=== PATIENT | female | born 1990 | race Caucasian/White ===

== ENCOUNTER → 2017-10-03 13:27 | Outpatient (CLI) | payer MEDICAID, SELFPAY ==
[2017-10-10 15:36] LABS: HPV APTIMA, High Risk Negative (Negative)
== END ==
PROVIDERS: Family Provider Nurse Practitioner Family; PCP Nurse Practitioner Family; Visit Provider Obstetrics & Gynecology
DX: Z12.4 Encounter for screening for malignant neoplasm of cervix (principal)
CPT/HCPCS: 88175; G0145

== ENCOUNTER → 2019-03-19 13:00 | Outpatient (CLI) | payer MEDICAID, SELFPAY ==
[2016-01-09 20:16] VITALS: BMI 18.9
[2019-03-25 10:29] LABS: HPV APTIMA, High Risk Negative (Negative)
== END ==
PROVIDERS: Visit Provider Obstetrics & Gynecology
DX: Z12.4 Encounter for screening for malignant neoplasm of cervix (principal)
CPT/HCPCS: 88175; G0145

== ENCOUNTER 2020-06-02 13:47 | Emergency (ER) | payer MEDICAID, SELFPAY ==
--- NOTE | 2020-06-02 12:55 | RAD_ITS ---
STUDY: X-RAY - LEFT KNEE REASON FOR EXAM: Left knee pain, left knee injury. TECHNIQUE: 4 view(s) of the knee. COMPARISON: Radiographs 02/03/2016. FINDINGS: Normal visualized distal femur. Normal visualized proximal tibia and fibula. Normal proximal tibiofibular articulation. Normal medial femorotibial compartment. Normal lateral femorotibial compartment. Normal patellofemoral articulation. There is patella judith. RAD/Knee 4 or More Views IMPRESSION: Patellar judith. Otherwise, unremarkable x-ray examination of the left knee. Electronically Signed: Josue Santo MD at 14:17 EDT Tel , Service support ,
[2020-06-02 13:47] VITALS: BP 138/94; PULSE 110; RESP 16; TEMP 36.6; O2SAT 99; BMI 26.4
--- NOTE | 2020-06-02 14:12 | CT_ITS ---
STUDY: CT FACIAL BONES WITHOUT CONTRAST REASON FOR EXAM: Female, 29 years old. FELL FACE 1ST ON MONDAY. SWELLING TO RIGHT EYE. RADIATION DOSAGE (If Supplied By Facility): CTDIvol = ( 33.45 ) mGy, DLP = ( 637.51 ) mGycm TECHNIQUE: The patient was scanned in a multi detector CT scanner. Sagittal and coronal images were reconstructed. Individualized dose optimization techniques were used for this CT. COMPARISON: None. FINDINGS: Normal soft tissue structures. Normal orbital nash and orbital contents. Normal nasal bones and anterior nasal spine. Normal facial bones. There is no demonstrated fracture. Normal visualized paranasal sinuses. CT/Sinus/Facial Bone IMPRESSION: Normal unenhanced CT of the facial bones. Electronically Signed: Hema Lucas, at 15:02 EDT , Service support ,
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
--- NOTE | 2020-06-02 14:20 | CT_ITS ---
STUDY: CT BRAIN WITHOUT CONTRAST REASON FOR EXAM: Female, 29 years old. FELL FACE 1ST ON MONDAY. SWELLING TO RIGHT EYE. RADIATION DOSAGE (If Supplied By Facility): CTDIvol = ( 60.81 ) mGy, DLP = ( 998.67 ) mGycm TECHNIQUE: Transaxial CT imaging of the brain was performed without administration of intravenous contrast material. Individualized dose optimization techniques were used for this CT. COMPARISON: No relevant priors. FINDINGS: Normal soft tissue structures. Normal calvarium. Normal size ventricles and extra-axial spaces for the patient''s age. Normal white matter tracts of the cerebral hemispheres. Normal basal ganglia and thalami. Normal brainstem. Normal cerebellum. There is no intracranial hemorrhage. There are no findings of an acute ischemic infarction. Normal visualized paranasal sinuses. CT/Brain/Head without Contrast IMPRESSION: Normal unenhanced CT scan of the brain. Electronically Signed: Hema Lucas, at 14:54 EDT , Service support ,
== END 2020-06-02 15:38 | disposition home or self-care (01) ==
PROVIDERS: Emergency Provider Emergency Medicine; PCP Internal Medicine
DX: S00.11XA Contusion of right eyelid and periocular area, 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 (principal); S83.92XA Sprain of unspecified site of left knee, 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; W17.89XA Other fall from one level to another, 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; Y93.01 Activity, walking, marching and hiking; Y92.009 Unspecified place in unspecified non-institutional (private) residence as the place of occurrence of the external cause; Y99.9 Unspecified external cause status
CPT/HCPCS: 70450; 70486; 73564; 99281

== ENCOUNTER → 2020-06-09 | Outpatient (CLI) | payer MEDICAID, SELFPAY ==
[2020-06-02 13:47] VITALS: BMI 26.4
[2020-06-11 20:08] LABS: Chlamydia By Nucleic Acid AMP Negative (Negative)
[2020-06-11 21:39] LABS: Gonococcus By Nucleic Acid AMP Negative (Negative)
[2020-06-19 06:24] LABS: HPV Reflexed? NOT INDICATED
== END | disposition home or self-care (01) ==
LOC: LABSPEC 06-10 09:40
PROVIDERS: PCP Internal Medicine; Visit Provider Obstetrics & Gynecology
DX: N91.2 Amenorrhea, unspecified (principal); Z11.3 Encounter for screening for infections with a predominantly sexual mode of transmission
CPT/HCPCS: 87491; 87591; 88175; G0145

== ENCOUNTER → 2020-12-08 14:20 | Outpatient (CLI) | payer MEDICAID, SELFPAY ==
--- NOTE | 2020-12-08 14:25 | US_ITS ---
STUDY: ULTRASOUND BREAST - RIGHT REASON FOR EXAM: Female, 30 years old. Palpable lump in the right breast. TECHNIQUE: Axial and longitudinal images of the RIGHT breast were performed with a high resolution ultrasound transducer. # OF IMAGES: 12 COMPARISON: Comparison is made with prior mammogram done earlier in the day. FINDINGS: RIGHT Breast: The palpable mildly corresponds to a 2.7 cm x 2.9 cm x 1.9 cm well-defined hypoechoic solid nodule at the 1 o''clock position of the breast at 3 cm from nipple. This most likely represents a fibroadenoma. A similar appearing hypoechoic solid nodule measuring 5 mm x 6 mm x 4 mm is seen adjacent to the dominant nodule. US/Breast Limited Unilateral IMPRESSION: The palpable abnormality corresponds to a 2.7 cm x 2.9 cm x 1.9 cm well-defined hypoechoic solid nodule at the 1 o''clock position of the breast at 3 cm from nipple. This most likely represents a small fibroadenoma. A biopsy is recommended. ASSESSMENT CATEGORY: BIRADS Category 4: Suspicious - Biopsy Should Be Considered. A letter regarding these results will be sent to the patient by the facility within 30 days. Electronically Signed: Hema Lucas MD at 8:25 EDT , Service support ,
--- NOTE | 2020-12-08 14:25 | BI_ITS ---
MAMMOGRAPHY - BILATERAL DIAGNOSTIC REASON FOR EXAM: Female, 30 years old. Right breast lump. PERTINENT HISTORY: Grandmother with breast cancer. TECHNIQUE: Digital bilateral breast jayy (3D mammographic acquisition) in the CC and MLO projections. 2-D mediolateral oblique (MLO) and craniocaudad (CC) views of both breasts were obtained. CAD: Full Field Digital Mammography with Computer Added Detection was performed. COMPARISON: None. Baseline examination. FINDINGS: Breast Composition: The breasts are extremely dense, which lowers the sensitivity of mammography. There is a 2.2 cm x 2.4 cm well-defined nodule in the upper deep medial aspect of the right breast. This corresponds to the palpable abnormality. No other significant abnormalities are identified. BI/DIAG MAMM W/CAD, BILAT IMPRESSION: 2.2 cm x 2.4 cm well-defined nodule in the upper deep medial aspect of the right breast. Correlation with ultrasound is recommended. ASSESSMENT CATEGORY: BIRADS Category 0: Incomplete. Need additional imaging evaluation. A letter regarding these results will be sent to the patient by the facility within 30 days. Approximately 10% of breast cancers are not detected by mammography. A normal mammogram should not delay biopsy of a clinically suspicious abnormality. Electronically Signed: Hema Lucas MD at 15:24 EDT , Service support ,
== END ==
PROVIDERS: PCP Internal Medicine; Referring Provider Obstetrics & Gynecology; Visit Provider Obstetrics & Gynecology
DX: N63.12 Unspecified lump in the right breast, upper inner quadrant (principal); Z80.3 Family history of malignant neoplasm of breast
CPT/HCPCS: 76642; 77062; 77066; G0279

== ENCOUNTER → 2020-12-11 | Outpatient (CLI) | payer MEDICAID, SELFPAY ==
[2020-12-11 09:19] VITALS: BMI 24.1
--- NOTE | 2020-12-11 09:20 | BRBX_PTH ---
PATIENT: PELON HERNANDEZ LOC: [facility] U#:[id number] AGE/SX: 30/F ROOM: RE12/11/[address]: Dr. Ld Padilla MD : 1990 BED: DIS: 12/11/2020 SPEC #: [id number] RECD: 12/11/20 10:28 STATUS: NORM REQ #: [id number] SAMMY: 12/11/20 09:[address]: Ld Padilla DEPT: SURGICAL PATHOLOGY RECD BY: Ml Al ENTERED: 12/11/20 12:52 SP TYPE: BREAST BX OTHR DR: Dr. Torsten Cat MD Tissues: Breast, NOS Procedures: Surgery Specimen Level IV HEADER OPERATION: Right breast biopsy PRE-OP DIAGNOSIS: Right breast mass TISSUE SUBMITTED: Right breast mass MICROSCOPIC DIAGNOSIS Right breast mass, core biopsy: Fibroadenoma. Negative for atypia or malignancy. See comment. SJ:celina 12/14/2020 COMMENT Correlation with clinical, radiologic findings and appropriate follow up are necessary. MICROSCOPIC DESCRIPTION Slides are reviewed. GROSS DESCRIPTION Received in fixative is one container labeled with the patient's name and designated right breast. The specimen consists of multiple elongated fragments of hyman tissue that in aggregate measure 2 x 1.5 x 0.1 cm. The specimen is totally submitted in one cassette. / AM:celina 12/11/20 TC:1 CPT: 16757
== END | disposition home or self-care (01) ==
LOC: LABSPEC 11:16
PROVIDERS: PCP Internal Medicine; Visit Provider Surgery
DX: N63.10 Unspecified lump in the right breast, unspecified quadrant (principal)
CPT/HCPCS: 88305

== ENCOUNTER 2021-09-03 09:38 | Outpatient (CLI) | payer MEDICAID, SELFPAY ==
--- NOTE | 2021-09-03 09:38 | US_ITS ---
STUDY: ULTRASOUND BREAST - RIGHT REASON FOR EXAM: Female, 30 years old. Palpable lump in the right breast. TECHNIQUE: Axial and longitudinal images of the RIGHT breast were performed with a high resolution ultrasound transducer. # OF IMAGES: 28 COMPARISON: Comparison is made with prior mammogram done earlier in the day. Prior sonogram dated 12/08/2020.. FINDINGS: RIGHT Breast: Stable 2.8 cm x 2.6 x 2.2 cm solid hypoechoic nodule at the 1 o''clock position of the breast at 3 cm from nipple. A tissue clip marker is seen within it in keeping with prior biopsy. Stable 8 mm x 9 mm x 8 mm hypoechoic nodule is seen adjacent at the 1 o''clock position of the breast at 3 cm from nipple. US/Breast Limited Unilateral IMPRESSION: Stable examination. ASSESSMENT CATEGORY: BIRADS Category 2: Benign. A letter regarding these results will be sent to the patient by the facility within 30 days. Electronically Signed: Hema Lucas MD at 12:34 EST , Service support ,
--- NOTE | 2021-09-03 09:38 | BI_ITS ---
MAMMOGRAPHY - BILATERAL DIAGNOSTIC REASON FOR EXAM: Female, 30 years old. Palpable lump in the inferior aspect of the right breast. PERTINENT HISTORY: Grandmother with breast cancer. Aunt with breast cancer. TECHNIQUE: Digital bilateral breast jayy (3D mammographic acquisition) in the CC and MLO projections. 2-D mediolateral oblique (MLO) and craniocaudad (CC) views of both breasts were obtained. CAD: Full Field Digital Mammography with Computer Added Detection was performed. COMPARISON: Comparison is made with prior study dated 12/08/2020. FINDINGS: Breast Composition: The breasts are extremely dense, which lowers the sensitivity of mammography. There is a 2.2 cm x 2.4 sign well-defined nodule in the upper deep medial aspect of the right breast. A tissue clip marker is seen within it. No other significant abnormalities are identified. There has been no significant change since the prior study. BI/DIAG MAMM W/CAD, BILAT IMPRESSION: Stable bilateral diagnostic mammogram. With the patient''s history of a new palpable lump in the inferior medial aspect of the right breast, correlation with ultrasound is recommended. ASSESSMENT CATEGORY: BIRADS Category 0: Incomplete. Need additional imaging evaluation. A letter regarding these results will be sent to the patient by the facility within 30 days. Approximately 10% of breast cancers are not detected by mammography. A normal mammogram should not delay biopsy of a clinically suspicious abnormality. Electronically Signed: Hema Lucas MD at 14:05 EST , Service support ,
== END 2021-09-03 23:59 | disposition short-term general hospital (02) ==
LOC: OPBI 09:38
PROVIDERS: PCP Internal Medicine; Referring Provider Obstetrics & Gynecology; Visit Provider Obstetrics & Gynecology
DX: N63.10 Unspecified lump in the right breast, unspecified quadrant (principal)
CPT/HCPCS: 77062; 76642; 77066; G0279

== ENCOUNTER → 2023-01-25 | Outpatient (CLI) | payer MEDICAID, SELFPAY ==
[2023-01-25 14:48] LABS: hCG Titer Quant., Serum 2909 mIU/mL (1-3)
== END | disposition home or self-care (01) ==
LOC: WOBLAB 11:50
PROVIDERS: PCP Internal Medicine; Visit Provider Nurse Practitioner Women's Health
DX: O04.80 (Induced) termination of pregnancy with unspecified complications (principal)
CPT/HCPCS: 36415; 84702

== ENCOUNTER → 2023-04-03 | Outpatient (CLI) | payer MEDICAID, SELFPAY ==
[2023-04-06 16:10] LABS: HPV APTIMA, High Risk Negative (Negative)
== END | disposition home or self-care (01) ==
LOC: LABSPEC 09:19
PROVIDERS: PCP Internal Medicine; Visit Provider Nurse Practitioner Women's Health
DX: Z01.419 Encounter for gynecological examination (general) (routine) without abnormal findings (principal)
CPT/HCPCS: 87624; 88175; G0145

== ENCOUNTER 2023-11-03 14:45 | Inpatient (IN) | payer MEDICAID, SELFPAY ==
[2023-11-03] VITALS (8 sets, daily range): BP systolic 131–157; BP diastolic 98–109; PULSE 102–155; RESP 12–20; TEMP 36.6–37; O2SAT 96–100; BMI 28.0; BMI 26.8
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
[2023-11-03] MEDS: Lorazepam 2 MG/ML WCH Syringe IV (15:37)
[2023-11-03 15:39] LABS: Absolute Lymphocyte Count 2.67 X10^3/uL (0.83-4.51); Absolute Neutrophil Count 7.6 X10^3/uL (2.0-7.7); Basophil# 0.05 X10^3/uL; Basophil% 0.5 % (0-1); Eosinophil# 0.08 X10^3/uL; Eosinophils% 0.7 % (0-5); Hematocrit 40.7 % (37-47); Hemoglobin 14.1 g/dL (12.0-15.0); Lymphocyte # 2.67 X10^3/ul (0.83-4.51); Lymphocyte % 24.1 % (19-41); Mean Corp Hgb Conc 34.6 g/dL (32-36); Mean Corpuscular Hgb 32.3 pg (27.0-32.0); Mean Corpuscular Volume 93.1 fL (81-99); Mean Platelet Vol. 9.3 fl (6.2-12.0); Monocyte# 0.62 X10^3/uL; Monocyte% 5.6 % (0-10); NRBC Flagged by Analyzer 0 % (0-5); Neutrophil # 7.64 X10^3/uL (2.7-7.7); Neutrophil % 68.7 % (47-70); Platelet Count 268 K/mm3 (150-450); RBC Distribution Width CV 13.4 % (11.6-14.6); RBC Distribution Width SD 45.1 fl (35.1-43.9); Red Blood Count 4.37 M/mm3 (4.2-5.4); White Blood Count 11.1 K/mm3 (4.4-11.0)
[2023-11-03 15:48] LABS: Mucous, Urine 0 SEEN /hpf (<or=2+)
[2023-11-03 15:57] LABS: Color, Urine Brown (Yellow); Glucose, Dipstick Normal (Normal); Ketone-Dipstick 5 mg/dl (Negative); Leukocyte Esterase-Dipstick 100 /ul (Negative); Nitrite-Dipstick Negative (Negative); Occult Blood-Urine 250 /ul (Negative); Protein-Dipstick 100 mg/dl (Negative); Specific Gravity, Urine 1.015 (1.002-1.030); Urine Clarity Cloudy (Clear); Urine Urobilinogen 4 mg/dl (Normal)
[2023-11-03 16:01] LABS: Internal QC Validated? YES +Cl - CLEAR BKGD; Pregnancy, Serum, hCG Quali. NEGATIVE Negative
[2023-11-03 16:05] LABS: ALB/GLOB Ratio 1.1 RATIO (0.9-2.4); AST(SGOT) 54 U/L (15-37); Alanine Aminotransfer ALT/SGPT 36 U/L (13-56); Albumin, Serum 4.5 g/dL (3.2-5.0); Alkaline Phosphatase 115 U/L (45-117); Anion Gap 16 (5-15); BUN 9 mg/dL (7-18); BUN/Creat Ratio 8.3 RATIO (10-20); Calcium,Total 8.8 mg/dL (8.5-10.1); Chloride 103 mmol/L (98-107); Creatinine, Serum 1.09 mg/dL (0.55-1.02); EST Glomerular Filtration Rate 61 mL/min (>60); Est Glom Filt Rate - Afr Amer 74 mL/min (>60); Glucose 117 mg/dL (74-106); Magnesium 1.6 mg/dL (1.6-2.6); Potassium 3.1 mmol/L (3.5-5.1); Protein, Total 8.5 g/dL (6.4-8.2); Sodium Level 139 mmol/L (136-145)
[2023-11-03 16:11] LABS: Acetaminophen (Tylenol) Level < 2.0 ug/mL (10.0-30.0); Salicylate < 1.7 mg/dL (2.8-20.0)
[2023-11-03 16:12] LABS: Urine Bilirubin Dipstick 1 mg/dL (Negative)
[2023-11-03 16:13] LABS: Red Blood Cells-Urine 50-100 SEEN /hpf (0-5)
[2023-11-03 16:14] LABS: Bacteria 2+ /hpf (None Seen); Squamous Epithelial Cells - UA 10-25 SEEN /hpf (5-10); White Blood Cells 10-25 SEEN /hpf (0-5)
--- NOTE | 2023-11-03 17:24 | PCM.HP.STD ---
HPI - General General Date of Admission: 11/03/23 HPI Narrative PELON HERNANDEZ, is a 33 F who presents to the hospital after suicide attempt by taking an entire bottle of escitalopram, she took between 60 and 80 tablets of 20 mg escitalopram. She is tachycardic and hypertensive consistent with serotonin syndrome. She has been given benzodiazepine, electrolyte so far are normal. She is also be given IV fluids. She was pink slipped in the ER and she will be evaluated by crisis when she is stable. She states that this was a suicide attempt, she denies any hallucinations either auditory or visual. She states that she is also an alcoholic and a heavy drinker for many many years though she states that she is never gone through withdrawal. She states that she is always suffered from depression and anxiety and has a history of self-harm with cutting but it appears that this is the first suicide attempt. [facility] Medical History Lump of right breast Overdose Home Medications escitalopram oxalate 20 mg tablet 20 mg PO DAILY 11/03/23 [History Last Taken 11/02/23] trazodone 50 mg tablet 50 mg PO QHS 11/03/23 [History Last Taken 10/31/23] Allergy/AdvReac Type Severity Reaction Status Date / Time latex Allergy Rash Verified 11/03/23 14:48 Family History Grandmother Breast cancer Aunt Breast cancer Sister Cancer melanoma Surgical History No significant past surgical history Social History (Updated 11/03/23 @ 15:[address] Anson Herbert MD) household members: significant other Smoking Status: Current every day smoker tobacco type: cigarettes ROS Constitutional Constitutional: Denies chills, fatigue, fever(s) or malaise Eyes Eyes: Denies blurry vision ENT HEENT: Denies headache(s) or nasal discharge Cardiovascular Cardiovascular: Denies chest pain, dyspnea on exertion or syncope Respiratory/Chest Respiratory/Chest: Denies cough, shortness of breath at rest or shortness of breath with exertion Gastrointestinal Gastrointestinal: Reports nausea and vomiting; Denies constipation or diarrhea Genitourinary Genitourinary: Denies dysuria Neurologic Neurologic: Reports tremor(s); Denies focal weakness or numbness Psychiatric Psychiatric: Reports anxiety, depression and suicidal ideation Vital Signs Vital Signs Vital Signs: 11/03/23 14:45 11/03/23 15:40 11/03/23 16:13 Temperature 98.4 F Temperature Source Temporal Pulse Rate 155 H 120 H 112 H Respiratory Rate 20 H 18 14 Blood Pressure 157/109 H 142/104 H 142/106 H Blood Pressure Mean 125 116 118 Pulse Ox 98 98 96 Oxygen Delivery Method Room Air Room Air Room Air 11/03/23 16:59 Temperature 98.6 F Temperature Source Pulse Rate 102 H Respiratory Rate 17 Blood Pressure 136/105 H Blood Pressure Mean 115 Pulse Ox 97 Oxygen Delivery Method Weight Weight: 168 lb 3.403 oz Body Mass Index (BMI) 28.0 Physical Exam Narrative General: Alert, Oriented x3, Cooperative, shaking and appears flushed HEENT: Atraumatic, PERRLA, EOMI, Normocephalic Oral: Moist Mucosa Neck: Supple, No JVD Lungs: Clear to auscultation, Normal air movement, No rhonchi, No wheeze, No rales Cardiovascular: Tachycardic, Regular Rhythm, Normal S1, Normal S2, No murmurs Abdomen: Soft, Non Tender, Non-Distended, No Hepato-splenomegaly Extremities: No edema, Capillary Refill Less than 3 Seconds Skin: No rashes, No breakdown Musculoskeletal: No Tenderness to Palpation of Joints or Extremities Neurological: No focal neurological deficits, Motor Exam 5/5 strength throughout, Sensory exam intact to light touch and pain Psych/Mental Status: Anxious, restless, depressed, denies hallucinations Results Lab / Micro Data 11/03/23 15:15 11/03/23 15:15 Labs: Laboratory Results - last 24 hr 11/03/23 15:10: Urine Color Brown, Urine Clarity Cloudy, Urine pH 7.0, Ur Specific [place] 1.015, Urine Protein 100 H, Urine Glucose (UA) Normal, Urine Ketones 5 H, Urine Occult Blood 250 H, Urine Nitrite Negative, Urine Bilirubin 1 H, Urine Urobilinogen 4 H, Ur Leukocyte Esterase 100 H, Urine RBC 50-100 SEEN, Urine WBC 10-25 SEEN, Ur Squamous Epith Cells 10-25 SEEN, Urine Bacteria 2+, Urine Mucus 0 SEEN, Ur Drug Screen Comment 11/03/23 15:15: WBC 11.1 H, RBC 4.37, Hgb 14.1, Hct 40.7, MCV 93.1, MCH 32.3 H, MCHC 34.6, RDW Std Deviation 45.1 H, RDW Coeff of Marcos 13.4, Plt Count 268, MPV 9.3, Immature Gran % (Auto) 0.400, Neut % (Auto) 68.7, Lymph % (Auto) 24.1, [place] % (Auto) 5.6, Eos % (Auto) 0.7, Baso % (Auto) 0.5, Absolute Neuts (auto) 7.6, Absolute Lymphs (auto) 2.67, Nucleated RBC % 0, Sodium 139, Potassium 3.1 L, Chloride 103, Carbon Dioxide 20.0 L, Anion Gap 16 H, BUN 9, Creatinine 1.09 H, Estim Creat Clear Calc 75.00, Est GFR (MDRD) Af Amer 74, Est GFR (MDRD) Non-Af 61, BUN/Creatinine Ratio 8.3 L, Glucose 117 H, Calcium 8.8, Magnesium 1.6, Total Bilirubin 0.90, AST 54 H, ALT 36, Alkaline Phosphatase 115, Total Protein 8.5 H, Albumin 4.5, Globulin 4.0, Albumin/Globulin Ratio 1.1, Serum , Qual NEGATIVE, Salicylates < 1.7 L, Acetaminophen < 2.0 L, Ethyl Alcohol 19.0 Rhythm Strip Rhythm Strip: Sinus Tach Rate: 140 Assessment & Plan Assessment/Plan (1) Suicide attempt: (2) Serotonin withdrawal syndrome: PLAN: Plan 1. Suicide attempt by overdose with serotonin syndrome/alcohol abuse/anxiety/depression ? Will place her alcohol withdrawal protocol with a benzodiazepine taper which will hopefully help both her serotonin syndrome as well as her alcohol use disorder ? Will also allow for as needed Ativan dosage ? Continue with IV fluids ? She will be admitted to stepdown in the ICU ? She is pink slipped and will need to meet with crisis for mental health evaluation and admission to a psychiatric hospital ? A UDS is pending though salicylates and acetaminophen are normal DVT: Ambulation Charges/Coding Visit Charges Inpatient E&M: 32018 Init Hosp L2
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
[2023-11-03 17:53] LABS: Amphetamine Urine VISTA NEGATIVE (<1000 ng/mL); Barbiturate Urine VISTA NEGATIVE (< 200 ng/mL); Benzodiazepine Urine VISTA NEGATIVE (< 200 ng/mL); Cocaine Urine VISTA NEGATIVE (< 300 ng/mL); Ecstacy Urine VISTA NEGATIVE (< 500 ng/mL); Methadone Urine VISTA NEGATIVE (< 300 ng/mL); PCP Urine VISTA NEGATIVE (< 25 ng/mL); THC Urine VISTA NEGATIVE (< 50 ng/mL); Vista UDS pH Range 6
--- NOTE | 2023-11-03 18:11 | ED.RN ---
KOBE PICKARD TALKED WITH POISON CONTROL.
--- NOTE | 2023-11-03 18:15 | ED.RN ---
SPOKE WITH LIDIA IN ICU ABOUT POISON CONTROL'S RECOMMENDATION TO REPLACE K+
--- OUTSIDE RECORDS SUMMARY | 2023-11-03 19:23 | XMS RPT_ITS | CCD ---
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 accurate placement. Bleeding expectations were reviewed. Recommend condom use for 7 days after placement. Follow up in 4-6 weeks for string check. Meka Rosario APRN.ANABEL [facility] 09-06-2023 Note HNO ID: [id number] Author: MEKA ROSARIO APRN.AGRICULTURAL SPECIALIST Service: ? Author Type: Nurse Practitioner Type: Progress Notes Filed: 09/06/2023 14:51 Note Text: Pelon Hernandez is a 32 year old female who presents for problem visit of need for Depo contraception. HPI: Patient went to [facility] x2 for Depo injection but could not get it because of her BP. Blood pressures were as follows: 08/31/23: 146/108 09/04/23 172/108 09/06/23 with PCP this mornin/96, BP sammy average 118/79 This provider took patient's BP with this appointment: 140/102 Sammy BP average with this appointment: 126/84 She does not have a history of hypertension. She does have a history of anxiety that she was started on Lexparo today with her PCP. PCP feels that BP is related to untreated anxiety. Patient denies headache or visual changes. Last Depo injection: 06/04/2023 OB History No obstetric history on file. 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 Social History Tobacco Use Smoking status: Former Types: Cigarettes Quit date: 02/24/2018 Years since quittin.5 Smokeless tobacco: Never Substance Use Topics Alcohol use: Yes Alcohol/week: 1.0 standard drink of alcohol Types: 1 Glasses of Wine (5oz) per week Drug use: Yes Frequency: 2.0 times per week Types: Marijuana Current Outpatient Medications Medication Sig escitalopram oxalate (LEXAPRO) 10 mg tablet Take 1 tablet by mouth once daily. No current facility-administered medications for this visit. Allergies As of Date: 09/06/2023 (No Known Allergies) Fully Assessed 09/06/2023 REVIEW OF SYSTEMS Abdomen: No bloating, early satiety, indigestion, or increased flatulence. No abdominal pain, nausea, vomiting, diarrhea, or constipation. Bladder: No dysuria, gross hematuria, urinary frequency, urinary urgency, or incontinence. Breast: No breast lumps, nipple d/c, overlying skin changes, redness or skin retraction. Expanded ROS: N/A Allergies and current medication updated:Yes EXAM: BP 118/79[as per previous appt today[ Ht 5' 6 (1.68m) Wt 164 lb (74.4kg) LMP 04/16/2018 BMI 26.48 kg/(m2). GENERAL: pleasant, female in no apparent distress HEENT: Normocephalic, atraumatic, mucus membranes moist, and no lesions DERMATOLOGY: Normal, without lesions, non-icteric, and non-hirsute CHEST: Normal inspiratory effort NEURO: alert and oriented x3,exam grossly non-focal EXTREMITIES: normal ASSESSMENT AND PLAN: 1. Encounter for management and injection of depo-Provera - ICD9: V25.49, ICD10: Z30.42 - Has been receiving Depo injection since March - Has noticed a 12 lb weight gain. Discussed Depo can cause weight gain - Contraception options R/B/A reviewed - Patient would like to stay with Depo for now. Considering IUD. - Based on BP Sammy average measurement, Depo is [facility] Cat 2 - Reviewed risks of elevated BP with Depo injection - To monitor blood pressures at home - If it is determined BP is not related to anxiety and systolic >160 or diastolic >100, Depo should be discontinued as it would be [facility] Cat 3, risks outweighing benefits. - Patient verbalizes understanding - Has follow up with PCP for anxiety 10/04 To schedule nurse visit for Depo injection. Still within 14 weeks of last Depo injection if she receives before Monday. test recommended if >14 weeks from last injection. RTO for annual in March or sooner as needed. Meka Rosario APRN.ANABEL Medical Decision Making: Problems: Low: 2+ self-limited or minor problems Risk: Low: Low risk from testing/treatment Moderate: Drug management Medical Decision Making Level: 3 - Low [facility] 09-06-2023 Note HNO ID: [id number] Author: CAMI PATRICK APRN.ANABEL Service: ? Author Type: Nurse Practitioner Type: Progress Notes Filed: 09/06/2023 10:43 Note Text: CC: Patient presents with: Anxiety Blood Pressure HPI Pelon Hernandez is a 32 year old female who presents today for above. Patient presented to [facility] on 09/04 for Depo shot. Her BP at that time was 172/106. She was asymptomatic, advised to follow-up with PCP. She does not have a history of hypertension. Does not monitor BP at home. BP today in the office is normal. She has a history of anxiety that has been getting worse. Was previously treated with Effexor but only helped with depression and was causing GERD symptoms. She was on Xanax years ago in high school along with counseling. Symptoms: nervousness, excessive worrying, trouble relaxing, irritability. Panic attacks: denies Sleep: is described as normal Alcohol use: does not drink any alcohol Drug use: No Appetite: good Stresses: Denies any major stressor. Suicidal Thoughts: No suicidal ideation, intent or plan Support: Limited Mood: The patient denies symptoms related to jamar. RAQUEL-7 ANXIETY SCALE 01/27/2022 09/06/2023 FEELING NERVOUS,ANXIOUS,OR ON EDGE 1 Several days 3 Nearly every day NOT BEING ABLE TO STOP OR CONTROL WORRYING 1 Several days 3 Nearly every day WORRYING TOO MUCH ABOUT DIFFERENT THINGS 0 Not at all sure 3 Nearly every day TROUBLE RELAXING 0 Not at all sure 1 Several days BEING SO RESTLESS THAT IT'S HARD TO SIT STILL 0 Not at all sure 0 Not at all sure BEING EASILY ANNOYED OR IRRITABLE 1 Several days 3 Nearly every day FEELING AFRAID IF SOMETHING AWFUL MIGHT HAPPEN 0 Not at all sure 1 Several days GAD7 SCORE 3 14 IF YOU CHECKED OFF ANY PROBLEMS Not difficult at all Very difficult CP PHQ9 01/27/2022 09/06/2023 Little interest or pleasure 0 - Not at all 0 - Not at all Feeling down, depressed, hopeless 1 - Several days 0 - Not at all Trouble falling or staying asleep, sleeping too much 0 - Not at all 1 - Several days Feeling tired, having little energy 3 - Nearly every day 1 - Several days Poor appetite or overeating 0 - Not at all 0 - Not at all Feeling bad about yourself, failure or you have let yourself/family down 0 - Not at all 0 - Not at all Trouble concentrating on things 0 - Not at all 1 - Several days Moving or speaking so slowly, or fidgety or restless 0 - Not at all 1 - Several days Thoughts that you would be better off , or of hurting yourself in some way 0 - Not at all 0 - Not at all How difficult have these problems made things Somewhat difficult Somewhat difficult Interpretation of Total Score 1-4 Minimal depression 1-4 Minimal depression Review of Systems Constitutional: Negative for chills, diaphoresis, fatigue, fever and unexpected weight change. Eyes: Negative for visual disturbance. Respiratory: Negative for cough, chest tightness, shortness of breath and wheezing. Cardiovascular: Negative for chest pain, palpitations and leg swelling. Neurological: Negative for dizziness, syncope, weakness, light-headedness, numbness and headaches. 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 MEDICATIONS propranolol (INDERAL) 10 mg tablet Take 1 tablet by mouth twice daily. (Patient not taking: Reported on 09/06/2023) venlafaxine ER (EFFEXOR XR) 75 mg 24 hr capsule Take 1 capsule by mouth once daily. (Patient not taking: Reported on 09/06/2023) History reviewed. No pertinent family history. Social History Tobacco Use Smoking status: Former Types: Cigarettes Quit date: 02/24/2018 Years since quittin.5 Smokeless tobacco: Never Substance Use Topics Alcohol use: Yes Alcohol/week: 1.0 standard drink of alcohol Types: 1 Glasses of Wine (5oz) per week Drug use: Yes Frequency: 2.0 times per week Types: Marijuana BP 118/79 Pulse 99 Resp 14 Wt 73.9 kg (163 lb) LMP 04/16/2018 SpO2 99% Physical Exam Vitals reviewed. Constitutional: Appearance: Normal appearance. Cardiovascular: Rate and Rhythm: Normal rate and regular rhythm. Pulses: Normal pulses. Heart sounds: Normal heart sounds. No murmur heard. Pulmonary: Effort: Pulmonary effort is normal. Breath sounds: Normal breath sounds. No wheezing, rhonchi or rales. Musculoskeletal: Right lower leg: No edema. Left lower leg: No edema. Skin: General: Skin is warm and dry. Neurological: Mental Status: She is alert. Psychiatric: Attention and Perception: Attention and perception normal. Mood and Affect: Affect normal. Mood is anxious. Speech: Speech normal. Behavior: Behavior normal. Thought Content: Thought content normal. Judgment: Judgment normal. ASSESSMENT/PLAN: 1. (more content not included)... [facility] 05-05-2023 Hospital Discharg e instructions Patient Education 05/05/2023 10:03:54 Knee Sprain Knee Sprain A sprain is an injury to the ligaments or capsule that holds a joint together. There are no broken bones. Most sprains take 3 to 6 weeks to heal. If it a severe sprain where the ligament is completely torn, it can take months to recover. Most knee sprains are treated with a splint, knee immobilizer brace, or elastic wrap for support. Severe sprains may rarely require surgery. Home care Stay off the injured leg as much as possible until you can walk on it without pain. If you have a lot of pain with walking, crutches or a walker may be prescribed. (These can be rented or purchased at many pharmacies and surgical or orthopedic supply stores). Follow your healthcare provider's advice about when to begin putting weight on that leg. Keep your leg elevated to reduce pain and swelling. When sleeping, place a pillow under the injured leg. When sitting, support the injured leg so it is above heart level. This is very important during the first 48 hours. Apply an ice pack over the injured area for 15 to 20 minutes every 3 to 6 hours. You should do this for the first 24 to 48 hours. You can make an ice pack by filling a plastic bag that seals at the top with ice cubes and then wrapping it with a thin towel. Continue to use ice packs for relief of pain and swelling as needed. As the ice melts, be careful to avoid getting your wrap, splint, or cast wet. After 48 hours, apply heat (warm shower or warm bath) for 15 to 20 minutes several times a day, or alternate ice and heat. You can place the ice pack directly over the splint. If you have to wear a ktsd-ubc-lynv knee brace, you can open it to apply the ice pack, or heat, directly to the knee. Never put ice directly on the skin. Always wrap the ice in a towel or other type of cloth. You may use fkdy-sbg-nsducyf pain medicine to control pain, unless another pain medicine was prescribed. If you have chronic liver or kidney disease or ever had a stomach ulcer or gastrointestinal bleeding, talk with your healthcare provider before using these medicines. If you were given a splint, keep it completely dry at all times. Bathe with your splint out of the water, protected with 2 large plastic bags, sealed with rubber bands or tape at the top end. If a fiberglass splint gets wet, you can dry it with a chair pad maker set to cool. If you have a vzgr-viu-jjuq knee brace, you can remove this to bathe, unless told otherwise. Follow-up care Follow up with your doctor as advised. Any X-rays you had today don t show any broken bones, breaks, or fractures. Sometimes fractures don t show up on the first X-ray. Bruises and sprains can sometimes hurt as much as a fracture. These injuries can take time to heal completely. If your symptoms don t improve or they get worse, talk with your doctor. You may need a repeat X-ray. If X-rays were taken, you will be told of any new findings that may affect your care. Call 911 Call 911 if you have: Shortness of breath Chest pain When to seek medical advice Call your healthcare provider right away if any of these occur: The splint or knee immobilizer brace becomes wet or soft The fiberglass cast or splint remains wet for more than 24 hours Pain or swelling increases The injured leg or toes become cold, blue, numb, or tingly [id number] [employer]. [address] [place] [address]. All rights reserved. This information is not intended as a substitute for professional medical care. Always follow your healthcare professional's instructions. Follow Up Care 05/05/2023 09:26:31 With:DAREN GASTELUM MD Address: [address] [facility] [address] [place] [phone] When:3-7 days With:TORSTEN CHAN MD Address: [address], [place] [id number]- When:2-4 days With:Go to emergency room if symptoms worsen Address:Unknown When:2-4 days [facility] 05-05-2023 Note Discharge Instructions Thank you for allowing [facility] to assist you with your healthcare needs. The following is important discharge information regarding your hospital visit. Diagnosis from Today's Visit Knee pain-swelling Knee sprain What to Do Next Instructions from Your Care Team Discharge Home Equipment - Ordered -- Immobilizer, Knee Right, 99 month(s), 05/05/23 10:02:00 EDT Post Acute Orders No qualifying data available. You Need to Schedule the Following Appointments Follow Up with DAREN GASTELUM MD When Within 3-7 days Where: [address] [facility] [address] [place] [phone] Follow Up with TORSTEN CHAN MD When Within 2-4 days Where: [address] [place] [address]- Follow Up with Go to emergency room if symptoms worsen When Within 2-4 days Allergies No Known Medication Allergies Medications Please ask your primary doctor or pharmacist before taking any other medication not listed, including over the counter drugs, herbal medications, vitamins and or supplements as they may interact with your home medications. What How Much When Instructions Last Dose New naproxen (naproxen 500 mg oral tablet) 1 tab(s) by mouth Two (2) times a day Printed Prescription Please take this list to your next doctor s visit. Bring all medications you take, including over the counter medications, herbals and other supplements with you to your doctor s visit. Patients and families are reminded to discard old lists and to update any records with all medication providers or retail pharmacies. Medication Leaflets naproxen (na PROX en) Aleve, Aleve Back and Muscle Pain, Aleve Easy Open Arthritis, Aleve Liquid Gels, Anaprox-DS, EC-Naprosyn, Naprelan, Naprosyn What is the most important information I should know about naproxen? Naproxen can increase your risk of fatal heart attack or stroke. Do not use this medicine just before or after heart bypass surgery (coronary artery bypass graft, or CABG). Naproxen may also cause stomach or intestinal bleeding, which can be fatal. What is naproxen? Naproxen is a nonsteroidal anti-inflammatory drug (NSAID). Naproxen is used to treat pain or inflammation caused by conditions such as arthritis, ankylosing spondylitis, tendinitis, bursitis, gout, or menstrual cramps. The delayed-release or extended-release tablets are slower-acting forms of naproxen that are used only for treating chronic conditions such as arthritis or ankylosing spondylitis. These forms of naproxen will not work fast enough to treat acute pain. Naproxen may also be used for purposes not listed in this medication guide. What should I discuss with my healthcare provider before taking naproxen? Naproxen can increase your risk of fatal heart attack or stroke, even if you don't have any risk factors. Do not use this medicine just before or after heart bypass surgery (coronary artery bypass graft, or CABG). Naproxen may also cause stomach or intestinal bleeding, which can be fatal. These conditions can occur without warning while you are using naproxen, especially in older adults. You should not use naproxen if you are allergic to it, or if you have ever had an asthma attack or severe allergic reaction after taking aspirin or an NSAID. Ask a doctor before giving naproxen to a child younger than 12 years old. Ask a doctor or pharmacist if this medicine is safe to use if you have: heart disease, high blood pressure, high cholesterol, diabetes, or if you smoke; a heart attack, stroke, or blood clot; stomach ulcers or bleeding; asthma; liver or kidney disease; fluid retention; or if you take aspirin to prevent heart attack or stroke. If you are , you should not take naproxen unless your doctor tells you to. Taking an NSAID during the last 20 weeks of can cause serious heart or kidney problems in the unborn baby and possible complications with your . It may not be safe to breastfeed while using this medicine. Ask your doctor about any risk. How should I take naproxen? Use exactly as directed on the label, or as prescribed by your doctor. Use the lowest dose that is effective in treating your condition. Shake the oral suspension (liquid) before you measure a dose. Measure a dose with the supplied measuring device (not a kitchen spoon). Take this medicine with food or milk if it upsets your stomach. Always follow directions on the medicine label about giving this medicine to a child. Naproxen doses are based on weight in children. Your child's dose needs may change if the child gains or loses weight. If you use naproxen long-term, you may need frequent medical tests. This medicine can affect the results of certain medical tests. Tell any doctor who treats you that you are using naproxen. Store at room temperature away from moisture, heat, and light. Keep the bottle tightly closed when not in use. What happens if I miss a dose? Since naproxen is used when needed, you may not be on a dosing schedule. Skip any missed dose if it's almost time for your next dose. Do not use two doses at one time. What happens if I overdose? Seek emergency medical attention or call the Poison Help line at . What should I avoid while taking naproxen? Avoid drinking alcohol. It may increase your risk of stomach bleeding. Avoid taking aspirin or other NSAIDs unless your doctor tells you to. Ask a doctor or pharmacist before using other medicines for pain, fever, swelling, or cold/flu symptoms. They may contain ingredients similar to naproxen (such as aspirin, ibuprofen, or ketoprofen). Ask your doctor before using an antacid, and use only the type your doctor recommends. Some antacids can make it harder for your body to absorb naproxen. What are the possible side effects of naproxen? Get emergency medical help if you have signs of an allergic reaction (runny or stuffy nose, wheezing or trouble breathing, hives, swelling in your face or throat) or a severe skin reaction (fever, sore throat, burning eyes, skin pain, red or purple skin rash with blistering and peeling). Stop using naproxen and seek medical treatment if you have a serious drug reaction that can affect many parts of your body. Symptoms may include skin rash, fever, swollen glands, muscle aches, severe weakness, unusual bruising, or yellowing of your skin or eyes. Get emergency medical help if you have signs of a heart attack or stroke: chest pain spreading to your jaw or shoulder, sudden numbness or weakness on one side of the body, slurred speech, leg swelling, feeling short of breath. Stop using naproxen and call your doctor at once if you have: shortness of breath (even with mild exertion); swelling or rapid weight gain; the first sign of any skin rash or blister, no matter how mild; signs of stomach bleeding--bloody or tarry stools, coughing up blood or vomit that looks like coffee grounds; liver problems--nausea, upper stomach pain, loss of appetite, dark urine, olimpia-colored stools, jaundice (yellowing of the skin or eyes); kidney problems--little or no urination, painful urination, swelling in your feet or ankles; or low red blood cells (anemia)--pale skin, unusual tiredness, feeling light-headed or short of breath, cold hands and feet. Common side effects may include: headache; indigestion, heartburn, stomach pain; or flu symptoms; This is not a complete list of side effects and others may occur. Call your doctor for medical advice about side effects. You may report side effects to FDA at 2-285-USL-9477. What other drugs will affect naproxen? Ask your doctor before using naproxen if you take an antidepressant. Taking certain antidepressants with an NSAID may cause you to bruise or bleed easily. Ask a doctor or pharmacist before using naproxen with any other medications, especially: other NSAIDs or salicylates (diflunisal, salsalate); antacids and sucralfate; cholestyramine; cyclosporine; digoxin; lithium; methotrexate; pemetrexed; probenecid; warfarin (Coumadin, Jantoven) or similar blood thinners; a diuretic or 'water pill'; or heart or blood pressure medication. This list is not complete. Other drugs may affect naproxen, including prescription and tvni-yoe-xwbqvvm medicines, vitamins, and herbal products. Not all possible drug interactions are listed here. Where can I get more information? Your pharmacist can provide more information about naproxen. Remember, keep this and all other medicines out of the reach of children, never share your medicines with others, and use this medication only for the indication prescribed. Every effort has been made to ensure that the information provided by [employer]. [employer]') is accurate, up-to-date, and complete, but no guarantee is made to that effect. Drug information contained herein may be time sensitive. [employer] information has been compiled for use by healthcare practitioners and consumers in the [place] and therefore [employer] does not warrant that uses outside of the [place] are appropriate, unless specifically indicated otherwise. [employer] drug information does not endorse drugs, diagnose patients or recommend therapy. [employer] drug information is an informational resource designed to assist licensed healthcare practitioners in caring for their patients and/or to serve consumers viewing this service as a supplement to, and not a substitute for, the expertise, skill, knowledge and judgment of healthcare practitioners. The absence of a warning for a given drug or drug combination in no way should be construed to indicate that the drug or drug combination is safe, effective or appropriate for any given patient. [employer] does not assume any responsibility for any aspect of healthcare administered with the aid of information [employer] provides. The information contained herein is not intended to cover all possible uses, directions, precautions, warnings, drug interactions, allergic reactions, or adverse effects. If you have questions about the drugs you are taking, check with your doctor, nurse or pharmacist. Copyright 1338-0130 [employer]. Version: 22.. Revision Date: 03/23/2023. Education Materials Knee Sprain A sprain is an injury to the ligaments or capsule that holds a joint together. There are no broken bones. Most sprains take 3 to 6 weeks to heal. If it a severe sprain where the ligament is completely torn, it can take months to recover. Most knee sprains are treated with a splint, knee immobilizer brace, or elastic wrap for support. Severe sprains may rarely require surgery. Home care Stay off the injured leg as much as possible until you can walk on it without pain. If you have a lot of pain with walking, crutches or a walker may be prescribed. (These can be rented or purchased at many pharmacies and surgical or orthopedic supply stores). Follow your healthcare provider's advice about when to begin putting weight on that leg. Keep your leg elevated to reduce pain and swelling. When sleeping, place a pillow under the injured leg. When sitting, support the injured leg so it is above heart level. This is very important during the first 48 hours. Apply an ice pack over the injured area for 15 to 20 minutes every 3 to 6 hours. You should do this for the first 24 to 48 hours. You can make an ice pack by filling a plastic bag that seals at the top with ice cubes and then wrapping it with a thin towel. Continue to use ice packs for relief of pain and swelling as needed. As the ice melts, be careful to avoid getting your wrap, splint, or cast wet. After 48 hours, apply heat (warm shower or warm bath) for 15 to 20 minutes several times a day, or alternate ice and heat. You can place the ice pack directly over the splint. If you have to wear a ebit-jqk-zdpa knee brace, you can open it to apply the ice pack, or heat, directly to the knee. Never put ice directly on the skin. Always wrap the ice in a towel or other type of cloth. You may use qdwl-yef-ohlmzhn pain medicine to control pain, unless another pain medicine was prescribed. If you have chronic liver or kidney disease or ever had a stomach ulcer or gastrointestinal bleeding, talk with your healthcare provider before using these medicines. If you were given a splint, keep it completely dry at all times. Bathe with your splint out of the water, protected with 2 large plastic bags, sealed with rubber bands or tape at the top end. If a fiberglass splint gets wet, you can dry it with a chair pad maker set to cool. If you have a hchb-ubu-sxcj knee brace, you can remove this to bathe, unless told otherwise. Follow-up care Follow up with your doctor as advised. Any X-rays you had today don t show any broken bones, breaks, or fractures. Sometimes fractures don t show up on the first X-ray. Bruises and sprains can sometimes hurt as much as a fracture. These injuries can take time to heal completely. If your symptoms don t improve or they get worse, talk with your doctor. You may need a repeat X-ray. If X-rays were taken, you will be told of any new findings that may affect your care. Call 911 Call 911 if you have: Shortness of breath Chest pain When to seek medical advice Call your healthcare provider right away if any of these occur: The splint or knee immobilizer brace becomes wet or soft The fiberglass cast or splint remains wet for more than 24 hours Pain or swelling increases The injured leg or toes become cold, blue, numb, or tingly 5055-6344 [employer]. [address] [place] [address]. All rights reserved. This information is not intended as a substitute for professional medical care. Always follow your healthcare professional's instructions. Additional Information VACCINATE! IT SAVES LIVES! Members of the community who have not yet received the COVID-19 vaccine and would like to receive it can visit one of [facility] vaccine clinics. There are many vaccine clinic locations within the [facility]. For locations and available times, please visit [email or web address] [email or web address] It is important to note that some COVID mobile vaccine clinics are held outdoors and may be canceled in rainy or stormy conditions. To learn more about pediatric vaccinations (ages 5-11), we invite you to visit the [facility] webpage. [email or web address].[email or web address]/p [email or web address]-Bthju-Bbxmvfjylik-Freq haygfi-Dpuon-Zburknuwo.html To learn more about the COVID-19 vaccine, we invite you to visit the CDC website for a list of frequently asked questions. https://www.cdc.gov/coronavirus/ 2019-ncov/vaccines/faq.html [facility] Patient Portal Access Instructions: Stay connected with your healthcare team and access your personal medical information anytime with the [facility] Patient Portal. If you would like a full copy of your medical records please contact the [facility] Medical Records Department Monday through Monday between 8a.m. and 4:30p.m. Please follow the directions below to access the portal: 1.Access the email account you provided upon registration to the hospital.2.Look for an invitation email from [facility].3.Open the email and access the invitation link: Accept Invitation to [facility].Fill in the required pandey to create your account. Sign into [email or web address] with your username and password that you created in the above steps to stay up to date. You can then view a summary of results, a summary of your visits, and the ability to download your summaries to your computer or send the information securely to a physician. Remember that your healthcare information is confidential, so carefully consider who you will allow to register on the [facility] Patient Portal for access to your information. You can also access the [facility] Patient Portal on the [employer] layla. Simply click on Health Records under Health Data and then click on the [employer] logo. HOW TO SAFELY DISPOSE OF PRESCRIPTION MEDICATIONS Please use one of the following methods to safely dispose of your unused medications. 1.Use a drug disposal kit: the drug disposal pouch allows you to safely discard your old and unused drugs. Ask your nurse to give you one when you are discharged.2.Visit a local take-back location: Many local pharmacies and police departments have programs that collect old and unwanted prescription drugs. Call your local pharmacy or go to http://[employer].Pay by Shopping (deal united)/9B2Qr1m to find one close to you.3.Make use of household items: Use cat litter or old coffee grounds to dispose medications if other options are not available. Mix your drugs with these household products, seal them in an airtight container and throw it into the garbage. Call [facility]: [phone] to be sure your drugs can be disposed of in this way. Some medicines may require a different approach.4.Never flush your medications down the toilet. IF YOU HAVE BEEN PRESCRIBED AN OPIOIDS FOR PAIN If you have been prescribed an opioid (such as hydrocodone, oxycodone or morphine), it is critical to understand the possible side effects and risks of opioid pain medications. Even when taken as directed, opioids can have several side effects including: Tolerance, meaning you might need to take more of a medication for the same pain relief. Nausea, vomiting and/or constipation. Sleepiness, dizziness, dry mouth, confusion, depression or itching. Physical dependence, meaning you have withdrawal symptoms when a medication is stopped ? this can develop within a few days. KNOW YOUR RESPONSIBILITIES It is important to know exactly how much and how often to take the opioid pain medications you are prescribed. Never take opioids in higher amounts or more often than prescribed. Do not combine opioids with alcohol or other drugs that cause drowsiness, such as benzodiazepines, also known as benzos, including diazepam and alprazolam, muscle relaxants or sleep aids. Never sell or share prescription opioids. This is illegal. Store opioids in a secure place and out of reach of others (including children, family, friends and visitors). The last page(s) of this document has been signed and retained as a CHART COPY Signatures Patient Education Materials Knee Sprain Medication Leaflets naproxen My discharge plan and instructions have been reviewed and explained to me and I,PELON HERNANDEZ understand my current condition and have read and understand these discharge instructions. I have received a written copy of the plan/instructions. If I have questions, I am aware that I should contact my doctor. 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 Alignment is within normal limits. Joint spaces are maintained. The soft tissues are unremarkable. IMPRESSION: Normal examination. Interpreted by: Shawn Zimmerman MD Preliminary Report By: Shawn Zimmerman MD Electronically signed By Shawn Zimmerman MD Dictated Date: 05/05/2023 10:00:38 AM Prelim Date: 05/05/2023 10:01:14 AM Sign Date: 05/05/2023 10:01:14 AM Ordering Provider: ISAI OJEDA [facility] 04-15-2022 Miscellaneous Notes Left message to call office. 04/15/2022 8:07 AM Patient is scheduled with me today for abdominal and lump on her labia. I don't do pelvic or vaginal exams, it would be better if she saw ELECTRONIC ENGINEERING TECHNICIAN Cami Parr APRN.ANABEL documented in this encounter [facility] 04-15-2022 Miscellaneous Notes Reason for call: Intermittent mild right upper abdominal pain that started 1.5 hours ago. 2 golf ball sized lumps located on labia and in right groin. Outcome: Advised to be seen today is office. Caller conferrenced to Shanice in appointment center, to be scheduled in office of PCP. Caller also given alternate options for care including emergency department for worsening symptoms. Reason for Disposition [1] MILD pain (e.g., does not interfere with normal activities) AND [2] comes and goes (cramps) AND [3] present > 72 hours (Exception: this same abdominal pain is a chronic symptom recurrent or ongoing AND present > 4 weeks) Answer Assessment - Initial Assessment Questions 1. LOCATION: Below right ribcage, two inches the right and above umbilicus. 5. PATTERN Intermittent. Pain will last 5 seconds, has felt the pain 10x since 6 am(1.5 hours). 6. SEVERITY: 1/10 dull achy pain. Mild pain (protocol changed to upper abdominal pain) 1. LOCATION: Under right ribcage. 2. RADIATION: Denies. 3. ONSET: 6 am today, 1.5 hours hours ago. 4. SUDDEN: Came out of nowhere while driving. 8. AGGRAVATING FACTORS: Pain is worse when lifting cat this morning. 9. CARDIAC SYMPTOMS: Do you have any of the following symptoms: chest pain, difficulty breathing, sweating, nausea? Denies above 10. OTHER SYMPTOMS: Golf ball size lump somewhat internal on the labia. Noticed this a couple days ago, has gotten bigger. Second golf ball sized lump where leg meets the the thigh on right side/groin . Noticed this lump this morning at 6 am. Tender to touch, 1/10 Lump is 5-6 inches from the upper abdominal pain. 11. : Denies, LMP April 08 Answer Assessment - Initial Assessment Questions protocol changed Protocols used: Abdominal Pain - Gumeko-PHKKN-BD, Abdominal Pain - Wbiji-PILET-IP documented in this encounter [facility] 01-27-2022 History of Presen t illness Narrative Chief Complaint Patient presents with: Recheck: Medication follow up HPI Pelon Hernandez is a 31 year old female who presents here today for anxiety and depression follow-up. Patient was seen 6 weeks ago and started on effexor which had been effective in the past. Patient reports significant improvement in depression and anxiety Persistent/bothersome symptoms include: palpitations which she has chronically related to anxiety. Has improved with the effexor. Was getting them constantly, and currently only 2-3 times a week. Only lasts a few seconds and occurs when she is very stressed about something, are self resolving. Was previously on propanolol in high school for this and would like to go back on it. Side effects: None Denies suicidal thoughts or plan. Denies any chest pain, sweating, nausea, shortness of breath, or nausea with palpitations. REVIEW OF SYSTEMS General: no fevers, no chills, no night sweats, no recurrent infections, no change in appetite, no change in energy and no significant changes in weight Respiratory: no cough, no wheezing, no shortness of breath, no hemoptysis Cardiovascular: no chest pain, no chest pressure and no swelling Neurologic: No headache, weakness, numbness, tingling, , dizziness, syncope. CP PHQ9 12/16/2021 01/27/2022 Little interest or pleasure 1 - Several days 0 - Not at all Feeling down, depressed, hopeless 2 - More than half the days 1 - Several days Trouble falling or staying asleep, sleeping too much 1 - Several days 0 - Not at all Feeling tired, having little energy 0 - Not at all 3 - Nearly every day Poor appetite or overeating 0 - Not at all 0 - Not at all Feeling bad about yourself, failure or you have let yourself/family down 3 - Nearly every day 0 - Not at all Trouble concentrating on things 2 - More than half the days 0 - Not at all Moving or speaking so slowly, or fidgety or restless 3 - Nearly every day 0 - Not at all Thoughts that you would be better off , or of hurting yourself in some way 0 - Not at all 0 - Not at all How difficult have these problems made things Very difficult Somewhat difficult Interpretation of Total Score 10-14 Moderate depression 1-4 Minimal depression RAQUEL-7 ANXIETY SCALE 12/16/2021 01/27/2022 FEELING NERVOUS,ANXIOUS,OR ON EDGE 3 Nearly every day 1 Several days NOT BEING ABLE TO STOP OR CONTROL WORRYING 3 Nearly every day 1 Several days WORRYING TOO MUCH ABOUT DIFFERENT THINGS 3 Nearly every day 0 Not at all sure TROUBLE RELAXING 1 Several days 0 Not at all sure BEING SO RESTLESS THAT IT'S HARD TO SIT STILL 0 Not at all sure 0 Not at all sure BEING EASILY ANNOYED OR IRRITABLE 1 Several days 1 Several days FEELING AFRAID IF SOMETHING AWFUL MIGHT HAPPEN 3 Nearly every day 0 Not at all sure GAD7 SCORE 14 3 IF YOU CHECKED OFF ANY PROBLEMS Extremely difficult Not difficult at all PAST MEDICAL HISTORY Diagnosis Date Depressive disorder 04/27/2018 Epiploic appendagitis 10/17/2020 distat descening colon 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 MEDICATIONS venlafaxine ER (EFFEXOR XR) 75 mg 24 hr capsule Take 1 capsule by mouth once daily. No family history on file. Social History Tobacco Use Smoking status: Former Smoker Quit date: 02/24/2018 Years since quittin.9 Smokeless tobacco: Never Used Substance Use Topics Alcohol use: Yes Alcohol/week: 2.5 standard drinks Types: 1 Glasses of Wine (5oz) per week Drug use: Yes Frequency: 2.0 times per week Types: Marijuana PHYSICAL EXAM BP 116/76 Pulse 80 Resp 16 Wt 62.1 kg (137 lb) LMP 04/16/2018 Appearance: well dressed well groomed, cooperative and pleasant Behavior: good eye contact Speech: normal and fluent and coherent Mood: euthymic Affect: appropriate Perceptions: none Thought process: normal Thought Content: normal Intelligence level: normal Insight: good Judgment: good General Appearance: well appearing, in no acute distress, alert Lungs: Lungs clear to auscultation. No wheezing, rhonchi, rales. Heart: RRR without murmur, gallop, or rubs. No ectopy ASSESSMENT/PLAN: 1. Anxiety and depression - ICD9: 300.00, 311, ICD10: F41.9, F32.A (primary diagnosis) Much improved - continue with current dose of Effexor - Reviewed concept of neurochemical imbalance wth depression/anxiety, treatment options and benefits of counseling in combination with medication. Also reviewed benefits of sleep hygeine, diet and exercise - Instructed patient to contact office or [id number] after-hours promptly should condition worsen or any new symptoms appear. - [facility] and after hours crisis line 2. Palpitations - ICD9: 785.1, ICD10: R00.2 Improved with effexor, EKG at last visit normal, labs normal, and no other accompanying symptoms. I feel this is related to her anxiety. - will start a very low dose of propanolol to see if this resolves her palpitations as per patient it did in high school. Patient unsure dosage she was on, but states it was twice a day. - discussed signs and symptoms of low blood pressure and will bring her back for BP follow up in 2 weeks to verify blood pressure is not low with this - follow up in office in 4 weeks - go to ER for chest pain, increase in palpitations, shortness of breath, dizziness, or any other urgent concerns. Prescription instructions reviewed with patient as applicable. Potential red flag symptoms discussed with the patient. Reviewed appropriate action plan to take if red flag symptoms occur. Patient agreeable to treatment plan Joleen Parr APRN.CNP documented in this encounter [facility] 12-17-2021 Miscellaneous Notes Patient returned call and went over results, notes from Joleen Parr ASSEMBLER [employer] with understanding. Left message to return call to office. ----- Message from Joleen Parr APRN.CNP sent at 12/17/2021 10:51 AM EDT ----- Please let patient know that all of her lab work is completely normal. Take care Joleen Parr APRN.CNP documented in this encounter [facility] 12-16-2021 History of Presen t illness Narrative CC: Patient presents with: Recheck: Follow up, increased anxiety and palpitations HPI Pelon Hernandez is a 31 year old female established patient of Dr. Chan who presents today for anxiety and palpitations. Diagnosed with palpitations and anxiety by previous PCP in 2007 while in highschool. Was on propanolol and prozac at that time which was effective. Was switched to Effexor when the prozac started giving her heartburn. Weaned herself off of the Effexor last fall and unsure why she did not start again. Feels her anxiety is very much out of control and recently having to take care of grandmother with dementia and other life stressors. Also reports hair falling out 2 months ago. With anxiety and panic feelings gets palpitations and chest tightness which is typical lkfor her. Sleep: difficulty staying asleep, difficulty falling asleep Alcohol use: drinks less than one drink a day Drug use: No Appetite: good Stresses: Major stressor: caring for grnadmother Suicidal Thoughts: No suicidal ideation, intent or plan Support: Comes from multiple sources including family Counseling: No REVIEW OF SYSTEMS General: no fevers, no chills, no night sweats, no recurrent infections, no change in appetite, no change in energy and no significant changes in weight Respiratory: no cough, no wheezing, no shortness of breath, no hemoptysis Cardiovascular: no swelling, no decrease in exercise tolerance and See HPI GI: No nausea, vomiting, or diarrhea Endocrine: no fatigue, no cold intolerance, no heat intolerance, no polyuria, no polyphagia and no polydipsia Neurologic: No weakness, numbness, tingling, dizziness,syncope. CP PHQ9 12/16/2021 Little interest or pleasure 1 - Several days Feeling down, depressed, hopeless 2 - More than half the days Trouble falling or staying asleep, sleeping too much 1 - Several days Feeling tired, having little energy 0 - Not at all Poor appetite or overeating 0 - Not at all Feeling bad about yourself, failure or you have let yourself/family down 3 - Nearly every day Trouble concentrating on things 2 - More than half the days Moving or speaking so slowly, or fidgety or restless 3 - Nearly every day Thoughts that you would be better off , or of hurting yourself in some way 0 - Not at all How difficult have these problems made things Very difficult Interpretation of Total Score 10-14 Moderate depression RAQUEL-7 ANXIETY SCALE 12/16/2021 FEELING NERVOUS,ANXIOUS,OR ON EDGE 3 Nearly every day NOT BEING ABLE TO STOP OR CONTROL WORRYING 3 Nearly every day WORRYING TOO MUCH ABOUT DIFFERENT THINGS 3 Nearly every day TROUBLE RELAXING 1 Several days BEING SO RESTLESS THAT IT'S HARD TO SIT STILL 0 Not at all sure BEING EASILY ANNOYED OR IRRITABLE 1 Several days FEELING AFRAID IF SOMETHING AWFUL MIGHT HAPPEN 3 Nearly every day GAD7 SCORE 14 IF YOU CHECKED OFF ANY PROBLEMS Extremely difficult PAST MEDICAL HISTORY Diagnosis Date Depressive disorder 04/27/2018 Epiploic appendagitis 10/17/2020 distat descening colon 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 MEDICATIONS venlafaxine ER (EFFEXOR XR) 75 mg 24 hr capsule Take 1 capsule by mouth once daily. No family history on file. Social History Tobacco Use Smoking status: Former Smoker Quit date: 02/24/2018 Years since quittin.8 Smokeless tobacco: Never Used Substance Use Topics Alcohol use: Yes Alcohol/week: 2.5 standard drinks Types: 1 Glasses of Wine (5oz) per week Drug use: Yes Frequency: 2.0 times per week Types: Marijuana PHYSICAL EXAM BP 132/80 Pulse 80 Resp 16 Wt 64.9 kg (143 lb) LMP 04/16/2018 General Appearance: well appearing, in no acute distress, alert Pysch: mood and affect broad and appropriate Skin: Skin color, texture, turgor normal for age; Head: normocephalic, atraumatic, no hair thinning or bald spots noted Eyes: conjunctiva pink and moist, no icterus, sclera white, non-injected Neck: Thyroid normal size and symmetric without palpable nodules, No adenopathy Lymph nodes: No cervical lymphadenopathy and No supraclavicular lymphadenopathy Lungs: Lungs clear to auscultation. No wheezing, rhonchi, rales. Heart: RRR without murmur, gallop, or rubs. No ectopy Health maintenance reviewed with patient: COVID-19 VACCINE(1) Never done HEPATITIS C SCREENING Never done HIV SCREENING Never done HPV TESTING Never done INFLUENZA(Season Ended) due on 04/21/2022 PAP TESTING due on 06/09/2025 DTAP,TDAP,TD(2 - Td or Tdap) due on 08/17/2028 MENINGOCOCCAL CONJUGATE Aged Out EKG Interpretation: RHYTHM: Normal sinus rhythm at 67 beats per minute with sinus arrythmia INTERVALS: Normal OR interval QRS COMPLEX: Normal ST SEGMENT: Normal ST-T segments QT INTERVAL: Normal COMPARED WITH PRIOR: None available DATA REVIEWED: No new labs ASSESSMENT/PLAN: 1. Anxiety and depression - ICD9: 300.00, 311, ICD10: F41.9, F32.A (primary diagnosis) - VENLAFAXINE ER 75 MG CAPSULE,EXTENDED RELEASE 24 HR - TSH BLD - T3 BLD - T4 FREE/FREE THYROX - follow up in 4-6 weeks or earlier if needed - Instructed patient to contact office or [id number] after-hours promptly should condition worsen or any new symptoms appear. - [facility]ing [facility] and after hours crisis line 2. Palpitations - ICD9: 785.1, ICD10: R00.2 - if Effexor does not resolve palpations with improvement of anxiety will consider restarting the propanolol - ECG COMPLETE - normal - TSH BLD - T3 BLD - T4 FREE/FREE THYROX - COMP METABOLIC PANEL - MAGNESIUM BLD - CBC + DIFF - Go to ER for increase in palpitaitons, chest pain, or any other urgent concern, 3. Chest pain, unspecified type - ICD9: 786.50, ICD10: R07.9 - as above - EKG normal and she states this is same as past issues with anxiety - ECG COMPLETE - TSH BLD - T3 BLD - T4 FREE/FREE THYROX - COMP METABOLIC PANEL - MAGNESIUM BLD 4. Hair loss - ICD9: 704.00, ICD10: L65.9 - TSH BLD - T3 BLD - T4 FREE/FREE THYROX - COMP METABOLIC PANEL - MAGNESIUM BLD - CBC + DIFF Prescription instructions reviewed with patient as applicable. Potential red flag symptoms discussed with the patient. Reviewed appropriate action plan to take if red flag symptoms occur. Patient agreeable to treatment plan. Joleen Parr APRN.CNP documented in this encounter [facility] Evaluation + Plan note No data available for this section [facility] this [facility] Diagnosis Anxiety and depression- Primary Dysthymic disorder Palpitations documented [facility] this [facility] Diagnosis Anxiety disorder, unspecified type- Primary Adjustment insomnia Transient disorder of initiating or maintaining sleep documented [facility] this [facility] Diagnosis Pelvic pain in female- Primary Unspecified symptom associated with female genital organs documented in this encounter [facility] for referral (narrative)* Outpatient Procedure (Routine) - Authorized Specialty Diagnoses / Procedures Referred By Siva t Referred To [facility] Diagnoses Palpitations Chest pain, unspecified type Procedures ECG COMPLETE ECG ROUTINE ECG W/LEAST 12 LDS W/I&R Joleen Parr APRN.AGRICULTURAL SPECIALIST [address] [place] [address] [facility] [address] [place] [address] Referral ID Status Reason Start Date Expiration Date Visits Requested Visits Authorized [id number] Authorized Auto-Generat ed Referral 12/16/2021 12/16/2022 1 1 [facility] for referral (narrative)* Diagnostic Procedure Only (Routine) - Authorized Specialty Diagnoses / Procedures Referred By Contac t Referred To Contact [facility] Diagnoses Pelvic pain in female Procedures US FEMALE PELVIS TRANSVAG US TRANSVAGINAL Meka Rosario APRN.CNP [address] [place] [address] Us Imaging [id number] Referral ID Status Reason Start Date Expiration Date Visits Requested Visits Authorized [id number] Authorized Auto-Generat ed Referral 10/18/2023 11/16/2024 1 1 [facility] Summary Purpose Family History No Family History Records FoundNo Family History Records Found No data available for this section No Family History Records Found Advance Directives No Advanced Directives Records FoundNo Advanced Directives Records FoundNo Advanced Directives Records Found Additional Source Comments INFORMATION SOURCE (unrecogn ized section and content) DATE CREATED AUTHOR AUTHOR'S ORGANIZ ATION 06/16/2021 [facility] DATE CREATED AUTHOR AUTHOR'S ORGANIZ ATION 10/05/2023 [facility] Source Comments (unrecognize d section and content) In the event this informatio n is protected by the Federal Confidentiality of Alcohol and Drug Abuse Patient Records regulations: The Federal rules restrict any use of the information to criminally investigate or prosecute any alcohol or drug abuse patient.[facility] the event this information is protected by the Federal Confidentiality of Alcohol and Drug Abuse Patient Records regulations: The Federal rules restrict any use of the information to criminally investigate or prosecute any alcohol or drug abuse patient.[facility] the event this information is protected by the Federal Confidentiality of Alcohol and Drug Abuse Patient Records regulations: The Federal rules restrict any use of the information to criminally investigate or prosecute any alcohol or drug abuse patient.[facility] the event this information is protected by the Federal Confidentiality of Alcohol and Drug Abuse Patient Records regulations: The Federal rules restrict any use of the information to criminally investigate or prosecute any alcohol or drug abuse patient.[facility] the event this information is protected by the Federal Confidentiality of Alcohol and Drug Abuse Patient Records regulations: The Federal rules restrict any use of the information to criminally investigate or prosecute any alcohol or drug abuse patient.[facility] the event this information is protected by the Federal Confidentiality of Alcohol and Drug Abuse Patient Records regulations: The Federal rules restrict any use of the information to criminally investigate or prosecute any alcohol or drug abuse patient.[facility] the event this information is protected by the Federal Confidentiality of Alcohol and Drug Abuse Patient Records regulations: The Federal rules restrict any use of the information to criminally investigate or prosecute any alcohol or drug abuse patient.[facility] the event this information is protected by the Federal Confidentiality of Alcohol and Drug Abuse Patient Records regulations: The Federal rules restrict any use of the information to criminally investigate or prosecute any alcohol or drug abuse patient.[facility] Reason for Visit (unrecogniz ed section and content) Reason Comments Results Reason Comments Recheck Medication follow up Reason Comments Abdominal Pain Reason Comments Appointment Reason Comments Patient Question Reason Comments F/U 1 month Reason Comments Patient Update Care Teams (unrecognized sec tion and content) 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 Specialty Start Date End Date Torsten Chan MD [address] [place] [address] PCP - General Internal Medicine 08/17/18 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 Specialty Start Date End Date Torsten Chan MD [address] [place] [address] PCP - General Internal Medicine 08/17/18 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 Specialty Start Date End Date Torsten Chan MD [address] [place], [place] [id number] PCP - General Internal Medicine 08/17/18 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 Specialty Start Date End Date Torsten Chan MD [address] [place], [place] [id number] PCP - General Internal Medicine 08/17/18 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 This clinical summary was aggregated from multiple sources. Caution should be exercised in using it in the provision of clinical care. This summary normalizes information from multiple sources, and as a consequence, information in this document may materially change the coding, format and clinical context of patient data. In addition, data may be omitted in some cases. CLINICAL DECISIONS SHOULD BE BASED ON THE PRIMARY CLINICAL RECORDS. [employer] [facility]. provides no warranty or guarantee of the accuracy or completeness of information in this document.
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
[2023-11-03] MEDS: LORazepam 1 MG Tablet PO ×2 (19:46→22:38)
[2023-11-03] MEDS: Potassium Chloride Oral Tablet 20 MEQ 60 MEQ PO (19:47)
[2023-11-03] MEDS: 0.9% Normal Saline (1000mL) 1,000 ML 100 ML IV (19:47)
[2023-11-04] VITALS (9 sets, daily range): BP systolic 115–126; BP diastolic 83–94; PULSE 78–100; RESP 16–21; TEMP 36.7–37.1; O2SAT 20–99; BMI 27.6
[2023-11-04] MEDS: LORazepam 1 MG Tablet PO ×6 (02:39→22:09)
[2023-11-04 04:17] LABS: Hematocrit 30.7 % (37-47); Hemoglobin 10.8 g/dL (12.0-15.0); Mean Corp Hgb Conc 35.2 g/dL (32-36); Mean Corpuscular Hgb 33.5 pg (27.0-32.0); Mean Corpuscular Volume 95.3 fL (81-99); Mean Platelet Vol. 9.2 fl (6.2-12.0); Platelet Count 180 K/mm3 (150-450); RBC Distribution Width CV 13.6 % (11.6-14.6); RBC Distribution Width SD 47.4 fl (35.1-43.9); Red Blood Count 3.22 M/mm3 (4.2-5.4); White Blood Count 7.8 K/mm3 (4.4-11.0)
[2023-11-04 04:34] LABS: Anion Gap 5 (5-15); BUN 9 mg/dL (7-18); Calcium,Total 7.8 mg/dL (8.5-10.1); Chloride 107 mmol/L (98-107); Creatinine, Serum 0.82 mg/dL (0.55-1.02); EST Glomerular Filtration Rate 85 mL/min (>60); Est Glom Filt Rate - Afr Amer 103 mL/min (>60); Estimated Creatinine Clearance 97.75 ml/min; Glucose 93 mg/dL (74-106); Potassium 3.3 mmol/L (3.5-5.1); Sodium Level 138 mmol/L (136-145)
[2023-11-04] MEDS: 0.9% Normal Saline (1000mL) 1,000 ML 100 ML IV ×2 (06:14→15:17)
--- NOTE | 2023-11-04 08:07 | EKG12_ITS ---
Test Reason : Serotonin Syndrome Blood Pressure : / mmHG Vent. Rate : 087 BPM Atrial Rate : 087 BPM P-R Int : 128 ms QRS Dur : 084 ms QT Int : 436 ms P-R-T Axes : 045 022 023 degrees QTc Int : 524 ms Normal sinus rhythm When compared with ECG of 03-NOV-2023 15:44, MANUAL COMPARISON REQUIRED, DATA IS UNCONFIRMED Confirmed by MARY CASE, NIMA ([id number]), assistant production editor RADHA AVERY ([id number]) on 11/07/2023 7:01:09 AM Referred By: Dr. Gallardo Confirmed By:NIMA HERNANDEZ MD
[2023-11-04] MEDS: Folic Acid 1 MG Tablet PO (08:53)
[2023-11-04] MEDS: Thiamine Hydrochloride 100 MG Tablet PO (08:53)
[2023-11-04] MEDS: LORazepam 2 MG/ML Syringe 1 MG IV (08:59)
[2023-11-04] MEDS: Gabapentin 300 MG Capsule PO ×2 (10:30→17:52)
--- NOTE | 2023-11-04 11:00 | EKG12_ITS ---
Test Reason : serotonin syndromw Blood Pressure : / mmHG Vent. Rate : 096 BPM Atrial Rate : 096 BPM P-R Int : 118 ms QRS Dur : 088 ms QT Int : 410 ms P-R-T Axes : 055 031 036 degrees QTc Int : 517 ms Normal sinus rhythm Abnormal ECG When compared with ECG of 04-NOV-2023 08:07, MANUAL COMPARISON REQUIRED, DATA IS UNCONFIRMED Confirmed by MARY CASE, NIMA ([id number]), publishing editor RADHA AVERY ([id number]) on 11/07/2023 6:59:16 AM Referred By: Chuy Confirmed By:NIMA HERNANDEZ MD
[2023-11-04] MEDS: hydrOXYzine PAM 25 MG Capsule 50 MG PO (13:40)
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
--- NOTE | 2023-11-04 16:30 | CASEMGMT ---
Social Work Spoke with Avis BRASWELL from the counseling center. Avis to the hospital to assess patient for inpatient hospitalization. Avis plans to check with the physician but does recommend inpatient hospitalization as well. For handoff and continuity of care of this patient, this leader writer updated Avis to stressors patient shared wiht this leader writer including patient's reports of hearing voices and music coming from the nash. [place] reports plan to try and look for a a unit that will accept both mental health and substance use issues, as patient does have a history of substance use as well. Plan: inpatient psychiatric hospitalization as per arrangements by crisis. -JUDY Padron, MICHAELLE *This note was generated with [employer] dictation software. It may contain incorrect words, spelling, and punctuation that were not noted in review of the chart prior to signing*
--- NOTE | 2023-11-04 16:38 | PCM.PN.HOSP ---
Reason for Visit Reason for Visit: Diagnoses Suicide attempt, 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 (11/03/23) Adverse effect of unspecified antidepressants, 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 (11/03/23) Subjective Subjective Patient was seen and examined today, I felt she was medically stable to be assessed by crisis today. Patient's corrected QT interval on her last EKG this afternoon was approximately 520 ms. I talked to social service agency director about her care today. Objective Data Objective Data Vital Signs: Vital Signs Temp Pulse Resp BP Pulse Ox O2 Del Method 98.1 F 95 16 125/94 H 20 Room Air 11/04/23 10:00 11/04/23 15:00 11/04/23 15:00 11/04/23 15:00 11/04/23 15:00 11/04/23 15:00 Oxygen Delivery Method Room Air Weight: 75.115 kg Body Mass Index (BMI) 27.6 Intake & Output: Intake and Output for Last 24 Hours 11/02/23 11/03/23 11/04/23 23:59 23:59 23:59 Intake Total 240 / 720 2785 / 2785 Balance 240 / 720 2785 / 2785 Lab / Micro Data 11/04/23 03:55 11/04/23 03:55 Labs: Laboratory Results - last 24 hr 11/03/23 15:10: Urine Opiates Screen NEGATIVE, Urine Methadone Screen NEGATIVE, Ur Barbiturates Screen NEGATIVE, Ur Phencyclidine Scrn NEGATIVE, Ur Amphetamines Screen NEGATIVE, MDMA (Ecstasy) Screen NEGATIVE, U Benzodiazepines Scrn NEGATIVE, Urine Cocaine Screen NEGATIVE, U Cannabinoids Screen NEGATIVE 11/04/23 03:55: WBC 7.8, RBC 3.22 L, Hgb 10.8 L, Hct 30.7 L, MCV 95.3, MCH 33.5 H, MCHC 35.2, RDW Std Deviation 47.4 H, RDW Coeff of Marcos 13.6, Plt Count 180, MPV 9.2, Sodium 138, Potassium 3.3 L, Chloride 107, Carbon Dioxide 26.0, Anion Gap 5, BUN 9, Creatinine 0.82, Estim Creat Clear Calc 97.75, Est GFR (MDRD) Af Amer 103, Est GFR (MDRD) Non-Af 85, BUN/Creatinine Ratio 11.0, Glucose 93, Calcium 7.8 L Rhythm Strip Rhythm Strip: Sinus Tach Rate: 140 Physical Exam Const alert, oriented x3 and no apparent distress General Appearance: cooperative, well kempt and well developed Orientation / Consciousness: awake, oriented to person, oriented to place and oriented to time HEENT normocephalic and moist oral mucous membranes Eyes PERRL, EOMs intact bilaterally and conjunctivae normal Neck supple, no JVD, thyroid normal and no carotid bruits General: trachea midline Resp normal respiratory effort, no retractions, no use of accessory muscles and clear to auscultation bilaterally Auscultation: Negative for rales, rhonchi or wheezes Cardio regular rate, regular rhythm, S1 normal heart sound, S2 normal heart sound, no murmurs, no rub and no gallops GI normal to inspection, nondistended, normoactive bowel sounds, soft to palpation, non-tender and non-distended Extremity no clubbing, cyanosis or edema Skin no rashes or lesions noted General Skin Exam: no breakdown Neuro oriented x3, CN's II-XII intact bilaterally, no focal motor deficits and no sensory deficits noted Sensorium / Orientation: awake and alert Speech: speech normal Psych affect normal Assessment & Plan Assessment/Plan (1) Suicide attempt: PLAN: Plan 1. Suicide attempt with overdose of SSRI-patient will be evaluated by crisis, I explained to the patient she will need to be hospitalized in a psychiatric facility due to her suicide attempt. #2 chronic depression-complicates care, medical course, recovery, and prognosis #3 sinus tachycardia-continue to monitor, patient is asymptomatic Total clinical time spent by myself addressing the patient's medical issues, reviewing all of her data, and collaborating with patient's care team: 35 minutes Charges/Coding Visit Charges Inpatient E&M: 83803 Subs Hosp L2
[2023-11-04] MEDS: traZODone 100 MG Tablet PO (22:09)
[2023-11-05] MEDS: 0.9% Normal Saline (1000mL) 1,000 ML 100 ML IV (02:29)
[2023-11-05 02:30] VITALS: BP 117/83; PULSE 78; RESP 14; TEMP 37.1; O2SAT 100
[2023-11-05 05:19] VITALS: BMI 27.6
[2023-11-05 07:53] VITALS: BP 115/103; PULSE 95; RESP 16; TEMP 36.2; O2SAT 97
[2023-11-05] MEDS: hydrOXYzine PAM 25 MG Capsule 50 MG PO (08:14)
--- NOTE | 2023-11-05 08:26 | DS.PCM_ITS ---
Providers Date of Admission: 11/03/23 Date of Discharge: 11/05/23 Primary Care Physician: Dr. Torsten Cat MD Reason For Visit: SEROTONIN SYNDROME Diagnosis Discharge Diagnosis (1) Suicide attempt: Status: Acute Code(s): T14.91XA - Suicide attempt, 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 Plan 1. Suicide attempt with overdose of SSRI-patient will be evaluated by crisis, I explained to the patient she will need to be hospitalized in a psychiatric facility due to her suicide attempt. #2 chronic depression-complicates care, medical course, recovery, and prognosis #3 sinus tachycardia-continue to monitor, patient is asymptomatic Total clinical time spent by myself addressing the patient's medical issues, reviewing all of her data, and collaborating with patient's care team: 35 minutes Medications at Discharge Home Medications escitalopram oxalate 20 mg tablet 20 mg PO DAILY 11/03/23 trazodone 50 mg tablet 50 mg PO QHS 11/03/23 Hospital Course Operations None Procedures None Summary of Care Provided Minutes Spent on Discharge: 30 Hospital Course: This 33-year-old white female was seen in the emergency room at [facility] after taking an overdose of Lexapro in an attempt to kill herself. Patient has a history of chronic depression. Poison control was conta cted and advised watching the patient for any prolongation of her QT interval. Patient was admitted to ICU, her QT interval was prolonged but not excessively prolonged. Patient had no arrhythmias during her hospital stay, she remained in sinus tachycardia and was asymptomatic. Patient was seen and consultation by crisis and on 11/05/2023, patient was discharged to a psychiatric facility for further care, she was not seen by myself on the day she was discharged. Weight / BMI Weight Weight: 75.2 kg Body Mass Index (BMI) 27.6 ABG / Lab / Microbiology Data 11/04/23 03:55 11/04/23 03:55 Meaningful Use Info Meaningful Use Diagnoses (Choose all that apply): None applicable Discharge Plan Admission Admit Date/Time: 11/03/23 17:19 Attending Provider: Alireza Vera Primary Care Provider: Torsten Cat Consulting Providers: Sudeep Samaniego Discharge Orders/Prescriptions Prescriptions: No Action trazodone 50 mg tablet 50 mg PO QHS escitalopram oxalate 20 mg tablet 20 mg PO DAILY Referrals / Follow Up: Torsten Cat MD [Primary Care Provider] -
== END 2023-11-05 08:17 | DRG 817 ==
LOC: ED 15:33 → ICU 17:39
PROVIDERS: Admitting Provider Family Medicine; Emergency Provider Emergency Medicine; PCP Internal Medicine; Visit Provider Internal Medicine
DX: T43.222A Poisoning by selective serotonin reuptake inhibitors, intentional self-harm, 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 (principal); G25.89 Other specified extrapyramidal and movement disorders; F10.10 Alcohol abuse, uncomplicated; F32.A Depression, unspecified; F17.210 Nicotine dependence, cigarettes, uncomplicated; F41.9 Anxiety disorder, unspecified; R03.0 Elevated blood-pressure reading, without diagnosis of hypertension; R00.0 Tachycardia, unspecified; Z79.899 Other long term (current) drug therapy
CPT/HCPCS: 80048; 80053; 80307; 80320; 80329; 81001; 83735; 84703; 85025; 85027; 93005; 99285; 99406; J7030; G0480

== ENCOUNTER 2024-04-06 09:53 | Emergency (ER) | payer MEDICAID, SELFPAY ==
[2024-04-06 09:53] VITALS: BP 132/92; PULSE 124; RESP 19; TEMP 36.2; O2SAT 100; BMI 29.2
--- NOTE | 2024-04-06 10:50 | EX.ED.UPPERE ---
HPI History of Present Illness Chief Complaint: Laceration Informant: patient Narrative Narrative: Patient is a 33-year-old female with history of anxiety, last tetanus 4 years ago, presenting with wound to her left fingers. Patient is [id number]. She states she was trying to use a brand-new knife to open up a hot package of hot dogs and cut her middle finger as well as her ring finger. It bled a lot initially. She changed the bandage today and noted that it was a little white around the main wound on the middle finger so she came in for evaluation. She states she is concerned she needs stitches but does not want them. Denies any associated weakness of the hand. Notes she does have some numbness along the radial aspect of the distal middle finger since the injury. No other complaints or concerns at this time. No fever or chills reported. Has not taken anything for pain but states the wound is painful. Tetanus Immunization: <5 years PFSH PFS Medical History Alcohol abuse Depression Anxiety Smoker Irregular heart beat Hypertension Overdose Lump of right breast Home Medications ?Medication ?Instructions ?Recorded ?Last Taken ?Type escitalopram oxalate 20 mg tablet 20 mg PO DAILY 11/03/23 11/02/23 History trazodone 50 mg tablet 50 mg PO QHS 11/03/23 10/31/23 History Allergy/AdvReac Type Severity Reaction Status Date / Time latex Allergy Rash Verified 04/06/24 09:55 Family History Grandmother Breast cancer Aunt Breast cancer Sister Cancer melanoma Surgical History No significant past surgical history Social History household members: significant other Smoking Status: Current some day smoker tobacco type: cigarettes ROS ROS ED Constitutional Constitutional ED: Denies chills or fever(s) Gastrointestinal Gastrointestinal: Denies nausea Musculoskeletal Musculoskeletal: Reports other Details: Left finger pain Integumentary Reports other Details: Laceration to left middle and ring finger Neurologic Neurologic: Reports paresthesias; Denies weakness Hematologic/Lymphatic Hematologic/Lymphatic: Denies easy bleeding or easy bruising EXAM Physical Exam Const Vital Signs: 04/06/24 09:53 Temperature 97.2 F L Temperature Source Temporal Pulse Rate 124 H Respiratory Rate 19 H Blood Pressure 132/92 H Blood Pressure Mean 105 Pulse Ox 100 Oxygen Delivery Method Room Air Positive well nourished and well developed General Appearance ED: well developed and NAD HEENT normocephalic and atraumatic Extremity normal to inspection and full ROM Extremity Narrative: No bony tenderness. Preserved flexion and extension of the affected fingers. General Extremety ED: Negative for edema General Extremity: Negative for edema Neuro oriented x3 Neuro Narrative: Subjective paresthesias to the radial aspect of the left third distal phalanx. Sensorium / Orientation: alert Psych mental status grossly normal Mood & Affect: anxious Skin Skin Narrative: 2 cm full-thickness slightly jagged laceration of the palmar aspect of the left third finger going from the middle phalanx to the distal phalanx. There is slight gapping in 1 area. No active bleeding. No surrounding erythema. The surrounding skin is in the middle is slightly macerated. On the fourth finger, palmar aspect of the distal phalanx there is a partial-thickness subcentimeter laceration with no active bleeding. Wound edges well-approximated. MDM MDM MDM Narrative Medical decision making narrative: Patient is evaluated for wound check for her left hand. Does have a laceration. As the laceration occurred 48 hours ago was not amenable to suture repair. Discussed with patient that at this time I think the risk of infection associated with repair is greater than the benefit of a delayed closure. Will allow to heal by secondary intent. Patient is agreeable with this plan. Patient is otherwise [place] intact with no signs of tendinous injury. Her tetanus is up-to-date. I do not think she requires any antibiotics. Is tachycardic emergency room but is quite anxious and I attribute her tachycardia to that. She does not have any signs of joint infection or systemic process. Patient is given dose of Motrin in the emergency room. Counseled on wound care. Discharged home in stable condition. Low suspicion for underlying fracture or foreign body and will defer x-ray at this time for Discharge Plan Triage Chief Complaint: Laceration ED Provider: Amelia Barrios Dx/Rx/DC Orders Clinical Impression: Laceration of multiple sites of left hand and fingers without complication Prescriptions: No Action trazodone 50 mg tablet 50 mg PO QHS escitalopram oxalate 20 mg tablet 20 mg PO DAILY Primary Care Provider: Torsten Cat Referrals: Torsten Cat MD [Primary Care Provider] - Activity Restrictions/Additional Instructions: I recommend using bacitracin ointment on it. Keep the wound covered and dry and apply bacitracin ointment twice a day or with bandage changes. Given that the injury was 2 days ago it is not a candidate for stitches at this time. You may take [id number] ibuprofen as needed for pain (up to 600 mg every 6 hours). Return if you have signs of infection such as significantly increased pain, increased redness, swelling or puslike drainage. Print Language: Maori Disposition Disposition: Home, Self Care Discharge Date/Time: 04/06/24 11:14
== END 2024-04-06 11:14 | disposition home or self-care (01) ==
PROVIDERS: Emergency Provider Emergency Medicine; PCP Internal Medicine; Visit Provider Emergency Medicine
DX: S61.412A Laceration without foreign body of left hand, 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 (principal); F17.210 Nicotine dependence, cigarettes, uncomplicated; I10 Essential (primary) hypertension; W26.0XXA Contact with knife, 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; Y93.G1 Activity, food preparation and clean up; F41.9 Anxiety disorder, unspecified; F32.A Depression, unspecified; Z79.899 Other long term (current) drug therapy
CPT/HCPCS: 99282